=== PATIENT | female | born 1980 | race Two or more races ===

== ENCOUNTER 2024-04-23 16:40 | Emergency (ER) | payer OTHER ==
[~2024-04-23] VITALS: Ht 165.1 cm; Wt 79.4 kg
[2024-04-23] MEDS ORDERED: FAMOtidine 10 MG/ML (4ML VIAL) IV ONE (17:30)
[2024-04-23] MEDS ORDERED: TAMSULOSIN HCL 0.4 MG CAP PO ONE ×2 (17:30→17:33)
[2024-04-23] MEDS ORDERED: 0.9 % SODIUM CHLORIDE 1,000 ML IV ONE (17:30)
[2024-04-23] MEDS ORDERED: KETOROLAC TROMETHAMINE 60 MG VIAL IM ONE ×2 (17:30→17:32)
[2024-04-23] MEDS ORDERED: ONDANSETRON HCL 2 MG/ML VIAL IV ONE (17:30)
[2024-04-23] MEDS ORDERED: FAMOTIDINE/PF 20 MG/2 ML VIAL ONE (17:32)
[2024-04-23] MEDS ORDERED: ONDANSETRON HCL 2 MG/ML VIAL ONE (17:32)
[2024-04-23 17:58] LABS: HEMATOCRIT 39.1 % (36.0-45.00); HEMOGLOBIN 13.1 g/dL (12.0-15.00); MEAN CELL VOLUME 80.9 fL (80.00-100.00); MEAN CORPUSCULAR HEMOGLOBIN 27.1 pg (27.00-32.0); MEAN CORPUSCULAR HGB CONC 33.5 g/dl (32.0-36.0); PLATELET COUNT 313 K/uL (150-450); RED BLOOD COUNT 4.83 M/uL (4.00-6.00); RED CELL DISTRIBUTION WIDTH 13.6 % (11.5-14.5)
[2024-04-23 18:38] LABS: ALBUMIN 3.7 gm/dL (3.4-5.0); ALKALINE PHOSPHATASE 87 U/L (50-136); ALT/SGPT 19 U/L (12-78); ANION GAP 10 (10.0-20.0); AST/SGOT 18 U/L (15-37); BILIRUBIN TOTAL 0.48 mg/dL (0.3-1.2); BLOOD UREA NITROGEN 11 mg/dL (7-18); BUN CREA RATIO 16 (7.0-25.0); CALCIUM 9.6 mg/dL (8.5-10.1); CARBON DIOXIDE 27 mEq/L (21-32); CHLORIDE 105 mmol/L (98-107); CREATININE SERUM 0.69 mg/dL (0.55-1.02); GFR 91.59; GLOBULINA 4.2 G/DL (2.4-3.5); GLUCOSE FASTING 102 mg/dL (65-100); OSMOLALITY SERUM 275 MOSM/KG (275-295); POTASSIUM 3.73 mEq/L (3.5-5.1); SODIUM 138 mmol/L (136-145); TOTAL PROTEIN 7.9 gm/dL (6.4-8.2)
[2024-04-23 18:48] LABS: HCG QUANTITATIVE < 1 mUI/mL (1-3)
[2024-04-23 19:26] LABS: PH,URINE 5.5 (5.0-8.0); URINE APPEARANCE Cloudy; URINE BILIRRUBIN Negative (NEGATIVE); URINE BLOOD Small; URINE COLOR Yellow; URINE GLUCOSE Negative (NEGATIVE); URINE KETONE Negative (NEGATIVE); URINE LEUKOCYTE Small; URINE NITRATE Negative; URINE PROTEIN Negative (NEGATIVE); URINE UROBILINOGEN 0.2 E.U./dl
[2024-04-23 19:27] LABS: URINE BACTERIA 2810.9 uL (0.0-1933); URINE EPITHELIAL CELLS 8.3 uL (0.0-38.8); URINE RBC 37.7 uL (0.0-20.8); URINE WBC 114.4 uL (0.0-23.2)
[2024-04-23] MEDS ORDERED: CEFTRIAXONE SODIUM 2,000 MG VIAL IV ONE (20:30)
[2024-04-23] MEDS ORDERED: MEPERIDINE HCL/PF 50 MG/ML VIAL IV ONE (20:30)
[2024-04-23] MEDS ORDERED: CEFTRIAXONE SODIUM 2,000 MG VIAL ONE (20:37)
[2024-04-24] MEDS ORDERED: MEPERIDINE HCL/PF 50 MG/ML VIAL IM ONE (00:30)
[2024-04-24] MEDS ORDERED: KETOROLAC TROMETHAMINE 60 MG VIAL IM STA (04:18)
[2024-04-24] MEDS ORDERED: KETOROLAC TROMETHAMINE 60 MG VIAL IM ONE (04:24)
[2024-04-24 06:33] LABS: HEMATOCRIT 33.3 % (36.0-45.00); HEMOGLOBIN 11.6 g/dL (12.0-15.00); MEAN CELL VOLUME 79.1 fL (80.00-100.00); MEAN CORPUSCULAR HEMOGLOBIN 27.4 pg (27.00-32.0); MEAN CORPUSCULAR HGB CONC 34.7 g/dl (32.0-36.0); PLATELET COUNT 225 K/uL (150-450); RED BLOOD COUNT 4.21 M/uL (4.00-6.00); RED CELL DISTRIBUTION WIDTH 13.7 % (11.5-14.5)
== END 2024-04-24 09:29 | disposition home or self-care (01) ==
LOC: ER 16:41
PROVIDERS: General Practice
DX: N88.8 Other specified noninflammatory disorders of cervix uteri (principal); R10.2 Pelvic and perineal pain; D25.9 Leiomyoma of uterus, unspecified; N28.1 Cyst of kidney, acquired; K57.30 Diverticulosis of large intestine without perforation or abscess without bleeding; N89.7 Hematocolpos